=== PATIENT | female | born 1990 | race Caucasian/White ===

== ENCOUNTER 2023-02-01 22:13 | Emergency (ER) | payer MEDICARE ==
[2023-02-01] MEDS ORDERED: Albuterol/Ipratropium 3.0-0.5 MG/3 ML Neb Soln NEB ONE (23:17)
[2023-02-01] MEDS ORDERED: methylPREDNISolone Sodium Succinate 125 MG/2 ML SDV IVPUSH ONE (23:38)
[2023-02-01] MEDS ORDERED: Azithromycin 250 MG Tab PO ONE (23:39)
[2023-02-02] MEDS ORDERED: Take Home: Azithromycin 250 MG, 2 Tab Pack PO ONE (00:42)
[2023-02-02] MEDS ORDERED: Albuterol 6.7 GM Inhaler INH ONE (00:43)
[2023-02-02] MEDS ORDERED: Take Home: predniSONE 20 MG, 4 Tab Pack PO ONE (00:43)
[2023-02-02] MEDS ORDERED: Take Home: Albuterol/Ipratropium 3.0-0.5 MG/3 ML Neb Soln, 5 Neb Pack NEB ONE (00:54)
== END 2023-02-02 01:16 | disposition home or self-care (01) ==
LOC: DL.ED 22:13
DX: J44.1 Chronic obstructive pulmonary disease with (acute) exacerbation (principal); Z88.6 Allergy status to analgesic agent; Z88.0 Allergy status to penicillin; Z91.048 Other nonmedicinal substance allergy status; Z20.822 Contact with and (suspected) exposure to COVID-19
CPT/HCPCS: 87804; 96374; 99284; 99285-25; A9270-GY; J2930; J7620-GY; U0002

== ENCOUNTER 2023-02-16 19:10 | Emergency (ER) | payer MEDICARE ==
[2023-02-16] MEDS ORDERED: Albuterol/Ipratropium 3.0-0.5 MG/3 ML Neb Soln NEB ONE (20:40)
[2023-02-16] MEDS ORDERED: Amoxicillin/Clavulanate K 875-125 MG Tab PO ONE (20:43)
[2023-02-16] MEDS ORDERED: Take Home: Albuterol/Ipratropium 3.0-0.5 MG/3 ML Neb Soln, 5 Neb Pack NEB ONE (21:25)
== END 2023-02-16 21:35 | disposition home or self-care (01) ==
LOC: DL.ED 19:10
DX: J06.9 Acute upper respiratory infection, unspecified (principal); J44.9 Chronic obstructive pulmonary disease, unspecified; F17.210 Nicotine dependence, cigarettes, uncomplicated; E66.9 Obesity, unspecified; Z68.37 Body mass index [BMI] 37.0-37.9, adult; Z88.6 Allergy status to analgesic agent; Z88.0 Allergy status to penicillin; Z91.048 Other nonmedicinal substance allergy status; Z79.899 Other long term (current) drug therapy
CPT/HCPCS: 99283; A9270-GY; J7620-GY

== ENCOUNTER 2023-03-02 02:02 | Emergency (ER) | payer MEDICARE ==
[2023-03-02] MEDS ORDERED: Albuterol/Ipratropium 3.0-0.5 MG/3 ML Neb Soln NEB ONE (02:24)
[2023-03-02] MEDS ORDERED: Take Home: Albuterol/Ipratropium 3.0-0.5 MG/3 ML Neb Soln, 5 Neb Pack NEB ONE (04:03)
== END 2023-03-02 04:17 | disposition home or self-care (01) ==
LOC: DL.ED 02:02
DX: J45.909 Unspecified asthma, uncomplicated (principal); J44.9 Chronic obstructive pulmonary disease, unspecified; E66.9 Obesity, unspecified; F17.210 Nicotine dependence, cigarettes, uncomplicated; Z68.43 Body mass index [BMI] 50.0-59.9, adult; Z91.048 Other nonmedicinal substance allergy status; Z88.5 Allergy status to narcotic agent; Z88.6 Allergy status to analgesic agent; Z79.899 Other long term (current) drug therapy
CPT/HCPCS: 94640; 99283; 99284; A9270-GY; J7620-GY

== ENCOUNTER 2023-05-25 12:05 | Emergency (ER) | payer MEDICARE ==
[2023-05-25] MEDS ORDERED: Orphenadrine 60 MG/2 ML Inj IM ONE (14:20)
[2023-05-25] MEDS ORDERED: Ketorolac 30 MG/ML SDV IM ONE (14:20)
[2023-05-25] MEDS ORDERED: Take Home: Cyclobenzaprine 10 MG Tab, 4 Tab Pack PO ONE (15:45)
== END 2023-05-25 16:15 | disposition home or self-care (01) ==
LOC: DL.ED 12:05
DX: S70.12XA Contusion of left thigh, initial encounter (principal); S70.02XA Contusion of left hip, initial encounter; J44.9 Chronic obstructive pulmonary disease, unspecified; Z88.5 Allergy status to narcotic agent; Z88.6 Allergy status to analgesic agent; Z91.048 Other nonmedicinal substance allergy status; W00.0XXA Fall on same level due to ice and snow, initial encounter
CPT/HCPCS: 96372; 99283; A9270-GY; J1885; J2360

== ENCOUNTER 2023-07-05 22:25 | Emergency (ER) | payer MEDICARE ==
[2023-07-05 23:26] LABS: BASOPHILS PERCENT AUTO 0.3 % (0.0-1.0); EOSINOPHILS PERCENT AUTO 2.3 % (1.0-3.0); HEMATOCRIT 35.7 % (37.0-47.0); HEMOGLOBIN 11.4 g/dL (12.0-16.0); LYMPHOCYTES PERCENT AUTO 21.1 % (20.5-50.1); MEAN CORPUSCULAR HEMOGLOBIN 26.9 pg (27.0-34.0); MEAN CORPUSCULAR HGB CONC 31.9 g/dL (33.0-35.0); MEAN CORPUSCULAR VOLUME 84.2 fL (80-100); MONOCYTES PERCENT AUTO 6.3 % (2-8); PLATELET COUNT,PLT 334 10^3/uL (150-450); RED BLOOD CELL COUNT 4.24 10^6/uL (4.2-5.4); WHITE BLOOD CELL COUNT,WBC 15.3 10^3/uL (5.0-10.0)
[2023-07-05 23:44] LABS: ALANINE AMINOTRANSFERASE,ALT 78 U/L (14-59); ALBUMIN 3.1 g/dL (3.4-5.0); ALKALINE PHOSPHATASE 111 U/L (46-116); ASPARTATE AMNIOTRANSFERASE,AST 37 U/L (15-37); BILIRUBIN TOTAL 0.1 mg/dL (0.2-1.0); BLOOD UREA NITROGEN,BUN 21 mg/dL (7-18); BUN/CREATININE RATIO 22.3 (No establ ref range); CALCIUM 8.5 mg/dL (8.5-10.1); CARBON DIOXIDE,CO2 29 mmol/L (21-32); CHLORIDE,CL 103 mmol/L (98-107); CREATININE 0.94 mg/dL (0.55-1.02); EST CRCL DRUG DOSING (CG) 66.07 mL/min; GLUCOSE RANDOM 125 mg/dL (70-99); PROTEIN TOTAL,TP 6.6 g/dL (6.4-8.2); SODIUM,NA 138 mmol/L (136-145)
[2023-07-05 23:47] LABS: A/G RATIO 0.89; ESTIMATED GFR 81 mL/min (>=60)
[2023-07-05 23:58] LABS: CORONAVIRUS COVID-19 NAA NEGATIVE (NEGATIVE); INFLUENZA A NAA NEGATIVE (NEGATIVE); INFLUENZA B NAA NEGATIVE (NEGATIVE)
[2023-07-06 00:17] LABS: APPEARANCE,URINE CLEAR (CLEAR); BILIRUBIN,URINE NEGATIVE (NEGATIVE); COLOR,URINE YELLOW (YELLOW); GLUCOSE,URINE NEGATIVE (NEGATIVE); KETONES,URINE NEGATIVE (NEGATIVE); LEUKOCYTE ESTERASE,URINE NEGATIVE (NEGATIVE); NITRITE,URINE NEGATIVE (NEGATIVE); OCCULT BLOOD,URINE TRACE-INTACT (NEGATIVE); PROTEIN,URINE NEGATIVE (NEGATIVE); UROBILINOGEN,URINE 0.2 mg/dL (0.2-1.0)
[2023-07-06] MEDS: cefTRIAXone 1 GM Vial IM ONE (00:28)
[2023-07-06 00:29] LABS: EPITHELIAL CELLS,URINE FEW /HPF (NOT SEEN); RBC,URINE 0-5 /HPF (0-5); WBC,URINE NOT SEEN /HPF (0-5/HPF)
[2023-07-06] MEDS: Dexamethasone 4 MG/ML SDV IM ONE (00:29)
[2023-07-06] MEDS: Lidocaine 1% 5 ML VIAL INJECT ONE (00:29)
[2023-07-06 00:30] LABS: BACTERIA,URINE FEW /HPF (0-FEW/HPF); MUCUS,URINE OCCASIONAL /LPF (NOT SEEN)
[2023-07-06] MEDS: Take Home: Amoxicillin/Clavulanate K 875-125 MG Tab, 6 Tab Pack PO ONE ×3 (00:39→00:43)
== END 2023-07-06 00:48 | disposition home or self-care (01) ==
LOC: DL.ED 22:25
DX: J06.9 Acute upper respiratory infection, unspecified (principal); J44.9 Chronic obstructive pulmonary disease, unspecified; Z79.899 Other long term (current) drug therapy; Z91.048 Other nonmedicinal substance allergy status; Z88.6 Allergy status to analgesic agent; Z88.5 Allergy status to narcotic agent
CPT/HCPCS: 0240U; 36415; 71045; 80053; 81001; 82947; 84484; 85025; 93005; 96372; 99285; A9270; J0696; J1100; 93010; 99284; J3490

== ENCOUNTER 2023-08-09 21:12 | Emergency (ER) | payer MEDICARE ==
[2023-08-09 23:06] LABS: HEMATOCRIT 37.8 % (37.0-47.0); HEMOGLOBIN 12.1 g/dL (12.0-16.0); MEAN CORPUSCULAR VOLUME 84.4 fL (80-100); PLATELET COUNT,PLT 290 10^3/uL (150-450); RED BLOOD CELL COUNT 4.48 10^6/uL (4.2-5.4); WHITE BLOOD CELL COUNT,WBC 15.1 10^3/uL (5.0-10.0)
[2023-08-09 23:09] LABS: BASOPHILS PERCENT AUTO 0.5 % (0.0-1.0); EOSINOPHILS PERCENT AUTO 2.5 % (1.0-3.0); LYMPHOCYTES PERCENT AUTO 16.5 % (20.5-50.1); MONOCYTES PERCENT AUTO 10.8 % (2-8); NEUTROPHILS PERCENT AUTO 69.7 % (42.2-75.2)
[2023-08-09 23:16] LABS: CORONAVIRUS COVID-19 NAA NEGATIVE (NEGATIVE); INFLUENZA A NAA NEGATIVE (NEGATIVE); INFLUENZA B NAA NEGATIVE (NEGATIVE); RESPIRATORY SYNCYTIAL VIR NAA NEGATIVE (NEGATIVE)
[2023-08-09 23:17] LABS: ALBUMIN 3.1 g/dL (3.4-5.0); ANION GAP 13.2 mEq/L (7-13); BILIRUBIN TOTAL 0.3 mg/dL (0.2-1.0); BUN/CREATININE RATIO 15.7 (No establ ref range); CALCIUM 8.5 mg/dL (8.5-10.1); CREATININE 0.89 mg/dL (0.55-1.02); EST CRCL DRUG DOSING (CG) 76.19 mL/min; POTASSIUM,K 4.2 mmol/L (3.5-5.1); PROTEIN TOTAL,TP 6.5 g/dL (6.4-8.2)
[2023-08-09 23:18] LABS: A/G RATIO 0.91
[2023-08-09 23:42] LABS: BAND PERCENT MAN 1 %; EOSINOPHILS PERCENT MAN 4 % (1-3); LYMPHOCYTES PERCENT MAN 20 % (20-50); MONOCYTES PERCENT MAN 12 % (2-8); SEG NEUTROPHILS PERCENT MAN 63 % (42-75)
[2023-08-09] MEDS: methylPREDNISolone Sodium Succinate 125 MG/2 ML SDV IM ONE (23:44)
[2023-08-09] MEDS: Azithromycin 250 MG Tab PO ONE (23:44)
[2023-08-09] MEDS: Take Home: predniSONE 20 MG, 4 Tab Pack PO ONE (23:50)
[2023-08-09] MEDS: Take Home: Azithromycin 250 MG, 2 Tab Pack PO ONE (23:50)
[2023-08-09] MEDS: Albuterol 6.7 GM Inhaler INH ONE (23:51)
== END 2023-08-09 23:54 | disposition home or self-care (01) ==
LOC: DL.ED 21:12
DX: J06.9 Acute upper respiratory infection, unspecified (principal); J44.9 Chronic obstructive pulmonary disease, unspecified; E66.9 Obesity, unspecified; Z79.899 Other long term (current) drug therapy; Z88.5 Allergy status to narcotic agent; Z88.6 Allergy status to analgesic agent; Z91.048 Other nonmedicinal substance allergy status; Z68.43 Body mass index [BMI] 50.0-59.9, adult
CPT/HCPCS: 0241U; 36415; 71045; 80053; 85025; 96372; 99284; 99285; A9270-GY; J2930

== ENCOUNTER 2023-09-25 05:21 | Emergency (ER) | payer MEDICARE ==
[2023-09-25 05:52] LABS: HEMATOCRIT 36.3 % (37.0-47.0); HEMOGLOBIN 11.6 g/dL (12.0-16.0); MEAN CORPUSCULAR HEMOGLOBIN 27.6 pg (27.0-34.0); MEAN CORPUSCULAR VOLUME 86.4 fL (80-100); PLATELET COUNT,PLT 339 10^3/uL (150-450); WHITE BLOOD CELL COUNT,WBC 16.9 10^3/uL (5.0-10.0)
[2023-09-25 05:57] LABS: BASOPHILS PERCENT AUTO 0.2 % (0.0-1.0); EOSINOPHILS PERCENT AUTO 1.2 % (1.0-3.0); LYMPHOCYTES PERCENT AUTO 19.1 % (20.5-50.1); MONOCYTES PERCENT AUTO 7.8 % (2-8); NEUTROPHILS PERCENT AUTO 71.7 % (42.2-75.2)
[2023-09-25 06:11] LABS: ALANINE AMINOTRANSFERASE,ALT 92 U/L (14-59); ALBUMIN 3.2 g/dL (3.4-5.0); ALKALINE PHOSPHATASE 103 U/L (46-116); AMYLASE 29 U/L (25-115); ANION GAP 12.4 mEq/L (7-13); ASPARTATE AMNIOTRANSFERASE,AST 42 U/L (15-37); BILIRUBIN TOTAL 0.2 mg/dL (0.2-1.0); BLOOD UREA NITROGEN,BUN 17 mg/dL (7-18); BUN/CREATININE RATIO 18.3 (No establ ref range); C-REACTIVE PROTEIN 0.66 ng/dL (<=0.50); CALCIUM 7.9 mg/dL (8.5-10.1); CARBON DIOXIDE,CO2 26 mmol/L (21-32); CHLORIDE,CL 106 mmol/L (98-107); CREATININE 0.93 mg/dL (0.55-1.02); EST CRCL DRUG DOSING (CG) 72.91 mL/min; GLUCOSE RANDOM 177 mg/dL (70-99); LIPASE 22 U/L (16-77); POTASSIUM,K 4.4 mmol/L (3.5-5.1); PROTEIN TOTAL,TP 6.9 g/dL (6.4-8.2); SODIUM,NA 140 mmol/L (136-145)
[2023-09-25] MEDS: Ondansetron 4 MG/2 ML SDV IVPUSH ONE (06:13)
[2023-09-25 06:14] LABS: LACTIC ACID 1.7 mmol/L (0.4-2.0)
[2023-09-25] MEDS: fentaNYL 100 MCG/2 ML SDV IVPUSH ONE ×3 (06:14→07:49)
[2023-09-25] MEDS: Sodium Chloride 0.9% 10 ML Syringe FLUSH PRN (06:14)
[2023-09-25 06:16] LABS: BAND PERCENT MAN 2 %; EOSINOPHILS PERCENT MAN 1 % (1-3); LYMPHOCYTES PERCENT MAN 22 % (20-50); MONOCYTES PERCENT MAN 4 % (2-8); SEG NEUTROPHILS PERCENT MAN 71 % (42-75)
[2023-09-25 06:17] LABS: A/G RATIO 0.86; ESTIMATED GFR 82 mL/min (>=60)
[2023-09-25 06:18] LABS: INR 0.9 (0.9-1.2); PROTHROMBIN TIME 9.1 SEC (9.0-12.0); PTT,PARTIAL THROMBOPLSTIN TIME 24.6 SEC (22.0-34.0)
[2023-09-25 06:58] LABS: APPEARANCE,URINE CLEAR (CLEAR); BILIRUBIN,URINE NEGATIVE (NEGATIVE); COLOR,URINE YELLOW (YELLOW); GLUCOSE,URINE NEGATIVE (NEGATIVE); KETONES,URINE NEGATIVE (NEGATIVE); LEUKOCYTE ESTERASE,URINE NEGATIVE (NEGATIVE); NITRITE,URINE NEGATIVE (NEGATIVE); OCCULT BLOOD,URINE NEGATIVE (NEGATIVE); PROTEIN,URINE NEGATIVE (NEGATIVE); UROBILINOGEN,URINE 0.2 mg/dL (0.2-1.0)
[2023-09-25] MEDS: Iopamidol 612 MG/ML 100 ML Bottle IVPUSH ONE (07:15)
[2023-09-25] MEDS: Sodium Chloride 0.9% 1,000 ML IV ONE ×2 (07:33→08:41)
[2023-09-25] MEDS: Ondansetron 4 MG/2 ML SDV IV ONE (08:16)
[2023-09-25] MEDS: Metoclopramide 10 MG/2 ML SDV IVPUSH ONE (08:41)
[2023-09-25] MEDS: Pantoprazole 40 MG Vial IVPUSH ONE (08:41)
[2023-09-25] MEDS: diphenhydrAMINE 50 MG/ML SDV IVPUSH ONE (08:41)
== END 2023-09-25 09:47 | disposition home or self-care (01) ==
LOC: DL.ED 05:21
DX: K52.9 Noninfective gastroenteritis and colitis, unspecified (principal); J44.9 Chronic obstructive pulmonary disease, unspecified; E66.9 Obesity, unspecified; Z79.899 Other long term (current) drug therapy; Z88.5 Allergy status to narcotic agent; Z88.6 Allergy status to analgesic agent; Z91.048 Other nonmedicinal substance allergy status
CPT/HCPCS: 36415; 74177; 80053; 81003; 81025; 82150; 83605; 83690; 84145; 85025; 85610; 85730; 86140; 96361; 96374; 96375; 96376; 99284; C9113; J1200; J2405; J2765; J3010; J7030; Q9967; J3490

== ENCOUNTER 2023-12-25 17:14 | Emergency (ER) | payer MEDICARE ==
[2023-12-25] MEDS: Ondansetron 4 MG/2 ML SDV IVPUSH ONE (17:54)
[2023-12-25] MEDS: Sodium Chloride 0.9% 1,000 ML IV ONE (17:54)
[2023-12-25] MEDS: Sodium Chloride 0.9% 10 ML Syringe FLUSH PRN (17:54)
[2023-12-25 18:02] LABS: HEMOGLOBIN 13.9 g/dL (12.0-16.0); MEAN CORPUSCULAR HEMOGLOBIN 27.2 pg (27.0-34.0); MEAN CORPUSCULAR HGB CONC 32.3 g/dL (33.0-35.0); MEAN CORPUSCULAR VOLUME 84.1 fL (80-100); PLATELET COUNT,PLT 395 10^3/uL (150-450); RED BLOOD CELL COUNT 5.11 10^6/uL (4.2-5.4); WHITE BLOOD CELL COUNT,WBC 20.2 10^3/uL (5.0-10.0)
[2023-12-25 18:07] LABS: BASOPHILS PERCENT AUTO 0.3 % (0.0-1.0); EOSINOPHILS PERCENT AUTO 1.4 % (1.0-3.0); LYMPHOCYTES PERCENT AUTO 24.5 % (20.5-50.1); MONOCYTES PERCENT AUTO 6.2 % (2-8); NEUTROPHILS PERCENT AUTO 67.6 % (42.2-75.2)
[2023-12-25 18:18] LABS: A/G RATIO 0.9; ALBUMIN 3.4 g/dL (3.4-5.0); BILIRUBIN TOTAL 0.5 mg/dL (0.2-1.0); BUN/CREATININE RATIO 14.2 (No establ ref range); C-REACTIVE PROTEIN 2.66 ng/dL (<=0.50); CALCIUM 9.2 mg/dL (8.5-10.1); CREATININE 1.06 mg/dL (0.55-1.02); EST CRCL DRUG DOSING (CG) 63.97 mL/min; MAGNESIUM 1.7 mg/dL (1.8-2.4); PROTEIN TOTAL,TP 7.4 g/dL (6.4-8.2)
[2023-12-25 18:38] LABS: BAND PERCENT MAN 1 %; LYMPHOCYTES % ATYPICAL MANUAL 6 %; LYMPHOCYTES PERCENT MAN 22 % (20-50); MONOCYTES PERCENT MAN 4 % (2-8); SEG NEUTROPHILS PERCENT MAN 66 % (42-75)
[2023-12-25 18:39] LABS: EOSINOPHILS PERCENT MAN 1 % (1-3)
[2023-12-25 18:44] LABS: APPEARANCE,URINE CLOUDY (CLEAR); BILIRUBIN,URINE NEGATIVE (NEGATIVE); COLOR,URINE YELLOW (YELLOW); GLUCOSE,URINE NEGATIVE (NEGATIVE); KETONES,URINE NEGATIVE (NEGATIVE); LEUKOCYTE ESTERASE,URINE NEGATIVE (NEGATIVE); NITRITE,URINE NEGATIVE (NEGATIVE); OCCULT BLOOD,URINE NEGATIVE (NEGATIVE); PH,URINE 6.5 (5.0-9.0); PROTEIN,URINE TRACE (NEGATIVE); UROBILINOGEN,URINE 0.2 mg/dL (0.2-1.0)
[2023-12-25 18:53] LABS: EPITHELIAL CELLS,URINE MANY /HPF (NOT SEEN); RBC,URINE 0-5 /HPF (0-5)
[2023-12-25 18:54] LABS: AMORPHOUS SEDIMENT,URINE FEW /HPF (NOT SEEN); BACTERIA,URINE MODERATE /HPF (0-FEW/HPF); MUCUS,URINE FEW /LPF (NOT SEEN)
[2023-12-25] MEDS: Meclizine 12.5 MG Tab PO ONE (19:25)
[2023-12-25] MEDS: Take Home: Ondansetron 4 MG Tab.DIS, 5 Tab Pack PO ONE (20:00)
== END 2023-12-25 20:03 | disposition home or self-care (01) ==
LOC: DL.ED 17:14
DX: B34.9 Viral infection, unspecified (principal); J44.9 Chronic obstructive pulmonary disease, unspecified; E66.9 Obesity, unspecified; Z68.43 Body mass index [BMI] 50.0-59.9, adult; Z79.899 Other long term (current) drug therapy; Z88.5 Allergy status to narcotic agent; Z88.8 Allergy status to other drugs, medicaments and biological substances; Z91.048 Other nonmedicinal substance allergy status
CPT/HCPCS: 36415; 80053; 81001; 82947; 83735; 85025; 86140; 96361; 96374; 99284; 99284-25; A9270-GY; J2405; J3490; J7030; Q0162

== ENCOUNTER 2024-01-23 23:14 | Emergency (ER) | payer MEDICARE ==
[2024-01-23] MEDS: Albuterol/Ipratropium 3.0-0.5 MG/3 ML Neb Soln NEB ONE (23:32)
[2024-01-23] MEDS: Albuterol/Ipratropium 3.0-0.5 MG/3 ML Neb Soln ONE (23:32)
[2024-01-24] MEDS: Albuterol 6.7 GM Inhaler INH ONE (00:15)
[2024-01-24] MEDS: Take Home: Albuterol/Ipratropium 3.0-0.5 MG/3 ML Neb Soln, 4 Neb Pack NEB ONE (00:15)
== END 2024-01-24 00:20 | disposition home or self-care (01) ==
LOC: DL.ED 23:14
DX: J45.20 Mild intermittent asthma, uncomplicated (principal); Z59.86 Financial insecurity; Z88.5 Allergy status to narcotic agent; Z88.6 Allergy status to analgesic agent; Z91.048 Other nonmedicinal substance allergy status; Z79.51 Long term (current) use of inhaled steroids; Z79.899 Other long term (current) drug therapy; Z87.891 Personal history of nicotine dependence
CPT/HCPCS: 94640; 99284; A9270; J7620-GY

== ENCOUNTER 2024-02-23 20:10 | Emergency (ER) | payer MEDICARE ==
[2024-02-23] MEDS: Ibuprofen 800 MG Tab PO ONE (21:33)
== END 2024-02-23 21:45 | disposition home or self-care (01) ==
LOC: DL.ED 20:10
DX: M25.512 Pain in left shoulder (principal); E66.9 Obesity, unspecified; Z79.899 Other long term (current) drug therapy; Z88.5 Allergy status to narcotic agent; Z88.6 Allergy status to analgesic agent; Z91.09 Other allergy status, other than to drugs and biological substances; Z68.43 Body mass index [BMI] 50.0-59.9, adult
CPT/HCPCS: 73030-LT; 99283; A9270-GY

== ENCOUNTER 2024-04-25 11:51 | Emergency (ER) | payer MEDICARE ==
[2024-04-25 12:23] LABS: BASOPHILS PERCENT AUTO 0.6 % (0.0-1.0); HEMATOCRIT 40.6 % (37.0-47.0); HEMOGLOBIN 12.9 g/dL (12.0-16.0); LYMPHOCYTES PERCENT AUTO 25.5 % (20.5-50.1); MEAN CORPUSCULAR HEMOGLOBIN 27.2 pg (27.0-34.0); MEAN CORPUSCULAR HGB CONC 31.8 g/dL (33.0-35.0); MEAN CORPUSCULAR VOLUME 85.5 fL (80-100); MONOCYTES PERCENT AUTO 7.1 % (2-8); NEUTROPHILS PERCENT AUTO 63.8 % (42.2-75.2); PLATELET COUNT,PLT 325 10^3/uL (150-450); RED BLOOD CELL COUNT 4.75 10^6/uL (4.2-5.4); WHITE BLOOD CELL COUNT,WBC 12.2 10^3/uL (5.0-10.0)
[2024-04-25] MEDS: Albuterol/Ipratropium 3.0-0.5 MG/3 ML Neb Soln NEB ONE (12:26)
[2024-04-25] MEDS: Dexamethasone 4 MG/ML SDV IVPUSH ONE (12:26)
[2024-04-25 12:45] LABS: ALANINE AMINOTRANSFERASE,ALT 75 U/L (14-59); ALBUMIN 3.4 g/dL (3.4-5.0); ALKALINE PHOSPHATASE 113 U/L (46-116); ANION GAP 10.9 mEq/L (7-13); ASPARTATE AMNIOTRANSFERASE,AST 29 U/L (15-37); BILIRUBIN TOTAL 0.2 mg/dL (0.2-1.0); BLOOD UREA NITROGEN,BUN 16 mg/dL (7-18); BUN/CREATININE RATIO 16.7 (No establ ref range); CALCIUM 8.4 mg/dL (8.5-10.1); CARBON DIOXIDE,CO2 27 mmol/L (21-32); CHLORIDE,CL 105 mmol/L (98-107); CREATININE 0.96 mg/dL (0.55-1.02); GLUCOSE RANDOM 119 mg/dL (70-99); POTASSIUM,K 3.9 mmol/L (3.5-5.1); PROTEIN TOTAL,TP 6.8 g/dL (6.4-8.2); SODIUM,NA 139 mmol/L (136-145)
[2024-04-25 12:47] LABS: ESTIMATED GFR 79 mL/min (>=60)
[2024-04-25] MEDS ORDERED: Albuterol 6.7 GM Inhaler INH ONE (14:09)
[2024-04-25] MEDS: Take Home: Albuterol 0.083% 2.5 MG/3 ML Neb Soln, 5 Neb Pack NEB ONE (14:17)
[2024-04-25] MEDS: Albuterol 6.7 GM Inhaler INH ONE (14:17)
== END 2024-04-25 14:42 | disposition home or self-care (01) ==
LOC: DL.ED 11:51
DX: J45.901 Unspecified asthma with (acute) exacerbation (principal); E66.9 Obesity, unspecified; Z68.43 Body mass index [BMI] 50.0-59.9, adult; Z88.0 Allergy status to penicillin; Z91.048 Other nonmedicinal substance allergy status; Z88.8 Allergy status to other drugs, medicaments and biological substances; Z79.899 Other long term (current) drug therapy
CPT/HCPCS: 36415; 71046; 80053; 84484; 85025; 85379; 96374; 99285; A9270; J1100; J7620-GY

== ENCOUNTER 2024-05-20 06:04 | Emergency (ER) | payer MEDICARE ==
[2024-05-20 06:36] LABS: BASOPHILS PERCENT AUTO 0.3 % (0.0-1.0); EOSINOPHILS PERCENT AUTO 3.1 % (1.0-3.0); HEMOGLOBIN 12.4 g/dL (12.0-16.0); LYMPHOCYTES PERCENT AUTO 34.5 % (20.5-50.1); MEAN CORPUSCULAR HEMOGLOBIN 27.3 pg (27.0-34.0); MEAN CORPUSCULAR HGB CONC 31.8 g/dL (33.0-35.0); MEAN CORPUSCULAR VOLUME 85.9 fL (80-100); MONOCYTES PERCENT AUTO 6.7 % (2-8); NEUTROPHILS PERCENT AUTO 55.4 % (42.2-75.2); PLATELET COUNT,PLT 371 10^3/uL (150-450); RED BLOOD CELL COUNT 4.54 10^6/uL (4.2-5.4); WHITE BLOOD CELL COUNT,WBC 14.4 10^3/uL (5.0-10.0)
[2024-05-20] MEDS: methylPREDNISolone Sodium Succinate 125 MG/2 ML SDV IVPUSH ONE (06:42)
[2024-05-20] MEDS: Albuterol/Ipratropium 3.0-0.5 MG/3 ML Neb Soln NEB ONE (06:42)
[2024-05-20 06:59] LABS: ALANINE AMINOTRANSFERASE,ALT 56 U/L (14-59); ALBUMIN 2.9 g/dL (3.4-5.0); ALKALINE PHOSPHATASE 100 U/L (46-116); ANION GAP 13.2 mEq/L (7-13); ASPARTATE AMNIOTRANSFERASE,AST 28 U/L (15-37); BILIRUBIN TOTAL 0.2 mg/dL (0.2-1.0); BLOOD UREA NITROGEN,BUN 16 mg/dL (7-18); CALCIUM 8.6 mg/dL (8.5-10.1); CARBON DIOXIDE,CO2 28 mmol/L (21-32); CHLORIDE,CL 106 mmol/L (98-107); CREATININE 0.89 mg/dL (0.55-1.02); EST CRCL DRUG DOSING (CG) 76.19 mL/min; GLUCOSE RANDOM 101 mg/dL (70-99); MAGNESIUM 1.9 mg/dL (1.8-2.4); POTASSIUM,K 4.2 mmol/L (3.5-5.1); PROTEIN TOTAL,TP 6.4 g/dL (6.4-8.2); SODIUM,NA 143 mmol/L (136-145)
[2024-05-20 07:00] LABS: A/G RATIO 0.83; ESTIMATED GFR 87 mL/min (>=60)
== END 2024-05-20 08:01 | disposition home or self-care (01) ==
LOC: DL.ED 06:04
DX: J45.901 Unspecified asthma with (acute) exacerbation (principal); E66.9 Obesity, unspecified; Z86.16 Personal history of COVID-19; Z88.0 Allergy status to penicillin; Z88.5 Allergy status to narcotic agent; Z91.048 Other nonmedicinal substance allergy status; Z79.51 Long term (current) use of inhaled steroids; Z79.899 Other long term (current) drug therapy; Z68.43 Body mass index [BMI] 50.0-59.9, adult
CPT/HCPCS: 71045; 80053; 83735; 84484; 85025; 87428-QW; 93010; 96374; 99284; 99285-25; J2919; J7620-GY

== ENCOUNTER 2024-06-07 04:54 | Emergency (ER) | payer MEDICARE ==
[2024-06-07] MEDS: Albuterol/Ipratropium 3.0-0.5 MG/3 ML Neb Soln NEB ONE ×2 (05:59→09:06)
[2024-06-07] MEDS: methylPREDNISolone Sodium Succinate 125 MG/2 ML SDV IVPUSH ONE (06:23)
[2024-06-07] MEDS: Sodium Chloride 0.9% 10 ML Syringe FLUSH PRN (06:23)
[2024-06-07 06:29] LABS: HEMATOCRIT 37.5 % (37.0-47.0); HEMOGLOBIN 12.2 g/dL (12.0-16.0); MEAN CORPUSCULAR HEMOGLOBIN 27.4 pg (27.0-34.0); MEAN CORPUSCULAR HGB CONC 32.5 g/dL (33.0-35.0); MEAN CORPUSCULAR VOLUME 84.3 fL (80-100); PLATELET COUNT,PLT 347 10^3/uL (150-450); RED BLOOD CELL COUNT 4.45 10^6/uL (4.2-5.4); WHITE BLOOD CELL COUNT,WBC 24.2 10^3/uL (5.0-10.0)
[2024-06-07 06:53] LABS: BASOPHILS PERCENT AUTO 0.1 % (0.0-1.0); EOSINOPHILS PERCENT AUTO 0.3 % (1.0-3.0); MONOCYTES PERCENT AUTO 6.6 % (2-8)
[2024-06-07 06:57] LABS: ALBUMIN 3.3 g/dL (3.4-5.0); ANION GAP 13.8 mEq/L (7-13); BILIRUBIN TOTAL 0.2 mg/dL (0.2-1.0); BUN/CREATININE RATIO 21.1 (No establ ref range); CALCIUM 8.8 mg/dL (8.5-10.1); CREATININE 0.95 mg/dL (0.55-1.02); EST CRCL DRUG DOSING (CG) 70.69 mL/min; POTASSIUM,K 3.8 mmol/L (3.5-5.1); PROTEIN TOTAL,TP 6.9 g/dL (6.4-8.2)
[2024-06-07 06:59] LABS: A/G RATIO 0.92
[2024-06-07 07:17] LABS: SEG NEUTROPHILS PERCENT MAN 77 % (42-75)
[2024-06-07 07:18] LABS: BAND PERCENT MAN 2 %
[2024-06-07 07:21] LABS: LYMPHOCYTES PERCENT MAN 16 % (20-50); MONOCYTES PERCENT MAN 5 % (2-8)
[2024-06-07] MEDS: Albuterol 0.083% 2.5 MG/3 ML Neb Soln NEB ONE (07:34)
== END 2024-06-07 09:52 | disposition home or self-care (01) ==
LOC: DL.ED 04:54
DX: J45.901 Unspecified asthma with (acute) exacerbation (principal); Z88.0 Allergy status to penicillin; Z91.048 Other nonmedicinal substance allergy status; Z88.8 Allergy status to other drugs, medicaments and biological substances; Z79.51 Long term (current) use of inhaled steroids; Z79.899 Other long term (current) drug therapy; Z86.16 Personal history of COVID-19
CPT/HCPCS: 36415; 71045; 80053; 84484; 85025; 87428-QW; 93005; 94640; 96374; 99285-25; J2919; J7613-GY; J7620-GY

== ENCOUNTER 2024-07-26 17:19 | Emergency (ER) | payer MEDICARE ==
[2024-07-26] MEDS: Albuterol/Ipratropium 3.0-0.5 MG/3 ML Neb Soln NEB ONE (17:50)
[2024-07-26] MEDS: methylPREDNISolone Sodium Succinate 125 MG/2 ML SDV IM ONE (17:50)
[2024-07-26] MEDS: Ibuprofen 600 MG Tab PO ONE (17:52)
[2024-07-26 18:07] LABS: BASOPHILS PERCENT AUTO 0.4 % (0.0-1.0); EOSINOPHILS PERCENT AUTO 0.7 % (1.0-3.0); HEMATOCRIT 38.5 % (37.0-47.0); HEMOGLOBIN 12.7 g/dL (12.0-16.0); LYMPHOCYTES PERCENT AUTO 9.1 % (20.5-50.1); MEAN CORPUSCULAR HEMOGLOBIN 27.3 pg (27.0-34.0); MEAN CORPUSCULAR VOLUME 82.6 fL (80-100); MONOCYTES PERCENT AUTO 9.8 % (2-8); PLATELET COUNT,PLT 270 10^3/uL (150-450); RED BLOOD CELL COUNT 4.66 10^6/uL (4.2-5.4); WHITE BLOOD CELL COUNT,WBC 10.2 10^3/uL (5.0-10.0)
[2024-07-26 18:29] LABS: A/G RATIO 0.9; ALBUMIN 3.4 g/dL (3.4-5.0); ANION GAP 16.5 mEq/L (7-13); BILIRUBIN TOTAL 0.4 mg/dL (0.2-1.0); BUN/CREATININE RATIO 8.3 (No establ ref range); CALCIUM 8.8 mg/dL (8.5-10.1); CREATININE 0.96 mg/dL (0.55-1.02); EST CRCL DRUG DOSING (CG) 69.96 mL/min; POTASSIUM,K 3.5 mmol/L (3.5-5.1)
[2024-07-26] MEDS: Azithromycin 250 MG Tab PO ONE (19:19)
[2024-07-26] MEDS: Oseltamivir 75 MG Cap PO ONE (19:19)
== END 2024-07-26 19:33 | disposition home or self-care (01) ==
LOC: DL.ED 17:19
DX: J45.901 Unspecified asthma with (acute) exacerbation (principal); J10.1 Influenza due to other identified influenza virus with other respiratory manifestations; E66.9 Obesity, unspecified; Z88.6 Allergy status to analgesic agent; Z88.1 Allergy status to other antibiotic agents; Z79.899 Other long term (current) drug therapy; Z86.16 Personal history of COVID-19
CPT/HCPCS: 71046; 80053; 85025; 87428; 96372; 99285; A9270; J2919; 99284; J7620-GY

== ENCOUNTER 2024-11-18 15:33 | Emergency (ER) | payer MEDICARE ==
[2024-11-18] MEDS: Take Home: Albuterol/Ipratropium 3.0-0.5 MG/3 ML Neb Soln, 4 Neb Pack NEB ONE (16:46)
[2024-11-18] MEDS: methylPREDNISolone Sodium Succinate 125 MG/2 ML SDV IM ONE (16:59)
[2024-11-18] MEDS: Albuterol 0.021% 0.63 MG/3 ML Neb Soln NEB ONE (17:01)
== END 2024-11-18 17:11 | disposition home or self-care (01) ==
LOC: DL.ED 15:33
DX: J45.901 Unspecified asthma with (acute) exacerbation (principal); Z88.0 Allergy status to penicillin; Z88.5 Allergy status to narcotic agent; Z91.048 Other nonmedicinal substance allergy status; Z79.51 Long term (current) use of inhaled steroids; Z79.899 Other long term (current) drug therapy
CPT/HCPCS: 94640; 96372; 99284; J2919; J7613

== ENCOUNTER 2025-01-25 09:55 | Emergency (ER) | payer MEDICARE ==
[2025-01-25] MEDS: Ketorolac 30 MG/ML SDV IM ONE (11:13)
[2025-01-25] MEDS: Orphenadrine 60 MG/2 ML Inj IM ONE (11:13)
== END 2025-01-25 12:16 | disposition home or self-care (01) ==
LOC: DL.ED 09:55
DX: S06.0X0A Concussion without loss of consciousness, initial encounter (principal); T14.8XXA Other injury of unspecified body region, initial encounter; M25.512 Pain in left shoulder; H91.90 Unspecified hearing loss, unspecified ear; Z88.0 Allergy status to penicillin; Z91.018 Allergy to other foods; Z88.5 Allergy status to narcotic agent; Z91.048 Other nonmedicinal substance allergy status; Z79.899 Other long term (current) drug therapy; J44.89 Other specified chronic obstructive pulmonary disease; W20.8XXA Other cause of strike by thrown, projected or falling object, initial encounter; Y93.89 Activity, other specified
CPT/HCPCS: 72125; 73030; 96372; 99284; J1885; J2360

== ENCOUNTER 2025-02-01 14:43 | Emergency (ER) | payer SELFPAY ==
[2025-02-01 15:32] LABS: APPEARANCE,URINE CLEAR (CLEAR); GLUCOSE,URINE NEGATIVE (NEGATIVE); OCCULT BLOOD,URINE NEGATIVE (NEGATIVE)
[2025-02-01] MEDS: Take Home: Ondansetron 4 MG Tab.DIS, 5 Tab Pack PO ONE (15:50)
== END 2025-02-01 15:54 | disposition home or self-care (01) ==
LOC: DL.ED 14:43
DX: B34.9 Viral infection, unspecified (principal); J44.89 Other specified chronic obstructive pulmonary disease; E66.9 Obesity, unspecified; F17.200 Nicotine dependence, unspecified, uncomplicated; Z88.0 Allergy status to penicillin; Z88.5 Allergy status to narcotic agent; Z88.8 Allergy status to other drugs, medicaments and biological substances; Z79.899 Other long term (current) drug therapy; Z68.42 Body mass index [BMI] 45.0-49.9, adult
CPT/HCPCS: 81003; 82947; 99284; Q0162

== ENCOUNTER 2025-03-12 20:38 | Emergency (ER) | payer MEDICARE ==
[2025-03-12 21:17] LABS: PLATELET COUNT,PLT 359 10^3/uL (150-450); RED BLOOD CELL COUNT 4.58 10^6/uL (4.2-5.4); WHITE BLOOD CELL COUNT,WBC 20.5 10^3/uL (5.0-10.0)
[2025-03-12 21:22] LABS: BASOPHILS PERCENT AUTO 0.3 % (0.0-1.0); EOSINOPHILS PERCENT AUTO 0.8 % (1.0-3.0); LYMPHOCYTES PERCENT AUTO 14.6 % (20.5-50.1); MONOCYTES PERCENT AUTO 4.9 % (2-8); NEUTROPHILS PERCENT AUTO 79.4 % (42.2-75.2)
[2025-03-12 21:42] LABS: ALANINE AMINOTRANSFERASE,ALT 72 U/L (14-59); ASPARTATE AMNIOTRANSFERASE,AST 30 U/L (15-37); BILIRUBIN TOTAL 0.1 mg/dL (0.2-1.0); BLOOD UREA NITROGEN,BUN 16 mg/dL (7-18); CARBON DIOXIDE,CO2 29 mmol/L (21-32); CHLORIDE,CL 106 mmol/L (98-107); CREATININE 0.75 mg/dL (0.55-1.02); EST CRCL DRUG DOSING (CG) 89.55 mL/min; GLUCOSE RANDOM 139 mg/dL (70-99); POTASSIUM,K 4.0 mmol/L (3.5-5.1); PROTEIN TOTAL,TP 7.1 g/dL (6.4-8.2); SODIUM,NA 143 mmol/L (136-145)
[2025-03-12 21:43] LABS: A/G RATIO 0.87; ESTIMATED GFR 106 mL/min (>=60)
[2025-03-12 21:46] LABS: HCG QUALITATIVE,SERUM NEGATIVE (NEGATIVE)
[2025-03-12 21:50] LABS: LYMPHOCYTES PERCENT MAN 14 % (20-50); MONOCYTES PERCENT MAN 6 % (2-8); SEG NEUTROPHILS PERCENT MAN 80 % (42-75)
== END 2025-03-13 00:06 | disposition hospice, inpatient (51) ==
LOC: DL.ED 20:38
DX: R10.12 Left upper quadrant pain (principal); J44.89 Other specified chronic obstructive pulmonary disease; E66.9 Obesity, unspecified; Z68.42 Body mass index [BMI] 45.0-49.9, adult; Z88.0 Allergy status to penicillin; Z88.5 Allergy status to narcotic agent; Z88.6 Allergy status to analgesic agent; Z91.048 Other nonmedicinal substance allergy status; Z79.899 Other long term (current) drug therapy
CPT/HCPCS: 36415; 71045; 80053; 84484; 84703; 85025; 85379; 93005; 96361; 96374; 99285; J0692; J7030; 93010; 99284

== ENCOUNTER 2025-04-10 20:29 | Emergency (ER) | payer OTHER | END 2025-04-10 21:37 | disposition home or self-care (01) | LOC: DL.ED 20:29 | DX: S49.92XA Unspecified injury of left shoulder and upper arm, initial encounter (principal); J44.89 Other specified chronic obstructive pulmonary disease; E66.9 Obesity, unspecified; Z68.43 Body mass index [BMI] 50.0-59.9, adult; Z88.0 Allergy status to penicillin; Z88.5 Allergy status to narcotic agent; Z91.048 Other nonmedicinal substance allergy status; Z91.09 Other allergy status, other than to drugs and biological substances; Z79.51 Long term (current) use of inhaled steroids; Z79.899 Other long term (current) drug therapy; W10.8XXA Fall (on) (from) other stairs and steps, initial encounter; Y99.0 Civilian activity done for income or pay | CPT/HCPCS: 73030; 99283; A9270 ==